=== PATIENT | male | born 1975 | race Caucasian/White ===

== ENCOUNTER 2018-02-28 19:49 | Emergency (ER) | payer SELFPAY ==
[~2018-02-28] VITALS: Ht 177.8 cm; Wt 84.0 kg
[2018-02-28 20:03] VITALS: BP 130/88
== END 2018-02-28 21:30 | disposition left against medical advice (07) ==
LOC: ER 20:03
DX: F10.10 Alcohol abuse, uncomplicated (principal); Y90.9 Presence of alcohol in blood, level not specified; Z53.21 Procedure and treatment not carried out due to patient leaving prior to being seen by health care provider